=== PATIENT | male | born 1985 | race Caucasian/White ===

== ENCOUNTER 2016-12-10 18:00 | Emergency (ER) | payer MEDICARE | END 2016-12-10 19:14 | disposition home or self-care (01) | LOC: ER 18:00 | DX: M54.9 Dorsalgia, unspecified (principal); G89.29 Other chronic pain; F17.210 Nicotine dependence, cigarettes, uncomplicated; Z87.828 Personal history of other (healed) physical injury and trauma | CPT/HCPCS: 96372; 99282-25 ==